=== PATIENT | male | born 1945 | race Caucasian/White ===

== ENCOUNTER 2017-01-05 19:50 | Emergency (ER) | payer OTHER ==
[~2017-01-05 19:50] MED LIST: AUGMENTIN 875875 MG PO; LIPITOR10 M1 PO; LISINOPRIL10 M1 PO; LOPRESSOR50 M1 PO; MULTAQ 400MG400 MG PO; NICODERM C21 MG/24 H TOP; OMEPRAZOLE40 MG PO; PEPCID40 MG PO; PRADAXA150 M1 PO; PREDNISONE10 MG PO; PRILOSEC20 MG PO; PROVENTIL0.09 MG/A1 INH
[2017-01-05] MEDS ORDERED: AMIODARONE HCL200 M1 PO (20:01)
[2017-01-05] MEDS ORDERED: LISINOPRIL40 M1 PO (20:16)
[2017-01-05] MEDS ORDERED: ATORVASTATIN CA40 M1 PO (20:16)
[2017-01-05] MEDS ORDERED: AMLODIPINE BESY10 M1 PO (20:17)
--- NOTE | 2017-01-05 20:23 | ED GENERAL ADULT ---
History of Present Illness General Chief Complaint: General Adult Stated Complaint: PT RIGHT HAND INDEX FINGER SWOLLOW AND ANKLE Source: patient, family Exam Limitations: no limitations Vital Signs & Intake/Output Vital Signs & Intake/Output Vital Signs Date Time Temp Pulse Resp B/P B/P Pulse O2 O2 Flow FiO2 Mean Ox Delivery Rate 01/05 2114 97.2 87 20 118/80 97 Room Air 01/05 1958 97.2 88 22 117/76 97 ED Intake and Output 01/06 0000 01/05 1200 Intake Total Output Total Balance Patient 280 lb Weight Allergies Coded Allergies: NO KNOWN ALLERGIES (03/12/14) Reconcile Medications Amiodarone HCl 200 MG TABLET 1 TAB PO DAILY AFIB (Reported) Amlodipine Besylate 10 MG TABLET 1 TAB PO DAILY BP (Reported) Atorvastatin Calcium 40 MG TABLET 1 TAB PO DAILY CHOLESTEROL (Reported) Dabigatran Etexilate Mesylate (Pradaxa 150 MG) 150 MG CAPSULE 1 CAP PO BID BLOOD THINNERS (Reported) Lisinopril 40 MG TABLET 1 TAB PO DAILY BP (Reported) Metoprolol Tartrate (Lopressor) 50 MG TABLET 1.5 TAB PO BID BP (Reported) Triage Note: PER PT RLE SWELLING AND BILAT HANDS, SWELLING BOTH RED, ITCHY. PER PT ABOUT THE SAME TIME THESE SYMPTOMS STARTED PT USED [employer] AND DID NOT WEAR PROTECTIVE EQUIPMENT, ALSO STARTED AMLODIPINE 12/21 CALLED CARDIOLOGY AND TOLD TO STOP MED. NO CP NO SOB Triage Nurses Notes Reviewed? yes Onset: Abrupt Duration: day(s): HPI: 01/05/17 71-year-old male presents to the emergency department with a rash to both hands and also to his right leg at the ankle. 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 Now he has angry erythematous rash to his palms on both hands. And also a small area on his right leg, just above the medial malleolus. He also has ongoing dependent edema to the lower extremities for years. No pain to his legs, no fever, no calf tenderness or swelling. He has a past medical history of atrial fibrillation. He's on Pradaxa, metoprolol, Lipitor, lisinopril, and was recently started on amlodipine. He is also on amiodarone. He has no chest pain or shortness of breath. On physical exam he has erythema to both palms and to an area on his right lower extremity. I will give him a cortisone ointment. He will apply twice a day. He'll follow-up with his doctor on Sunday. Past History Travel History Traveled to [place] past 21 day No Medical History Any Pertinent Medical History? see below for history Neurological: NONE EENT: NONE Cardiovascular: AFIB,HTN, CHOL Respiratory: NONE Gastrointestinal: NONE Hepatic: NONE Renal: NONE Musculoskeletal: NONE Psychiatric: NONE Endocrine: NONE History of MRSA: No History of VRE: No History of CDIFF: No Surgical History Surgical History: non-contributory Psychosocial History Who do you live with Spouse Services at Home None What is your primary language Khmer Tobacco Use: Current Daily Use Daily Tobacco Use Amount/Type: =< 4 Cigarettes daily Family History Hx Contributory? No Review of Systems Review of Systems Constitutional: Denies: fever. EENTM: Reports: no symptoms. Respiratory: Denies: short of breath. Cardiovascular: Denies: chest pain. GI: Denies: abdominal pain. Genitourinary: Reports: no symptoms. Musculoskeletal: Reports: see HPI. Skin: Reports: see HPI. Neurological/Psychological: Reports: no symptoms. Hematologic/Endocrine: Reports: no symptoms. Physical Exam Physical Exam General Appearance: no apparent distress, alert, awake, anxious Head: atraumatic, normal appearance Eyes: Bilateral: normal appearance, PERRL, EOMI. Ears, Nose, Throat: normal ENT inspection Neck: supple Respiratory: no respiratory distress Cardiovascular: irregularly irregular Peripheral Pulses: 4+ radial (R), 4+ radial (L) Back: normal range of motion Extremities: pedal edema, no calf pain or tenderness. Neurologic/Psych: no motor/sensory deficits, awake, alert, oriented x 3 Skin: rash Core Measures ACS in differential dx? No CVA/TIA Diagnosis: No Severe Sepsis Present: No Septic Shock Present: No Progress Differential Diagnoses I considered the following diagnoses in my evaluation of the patient: [ Cellulitis, contact dermatitis, adverse drug reaction, DVT] Plan of Care: Hydrocortisone ointment as directed, follow-up with his doctor on Sunday. Initial ED EKG: none Departure Departure Disposition: HOME OR SELF CARE Condition: Stable Clinical Impression Primary Impression: Contact dermatitis Referrals: RENEE BERRY MD (PCP/Family) Departure Forms: Customer Survey General Discharge Information Comments The patient was treated with a single dose of prednisone in the ED. He was given hydrocortisone ointment to apply to the rash. He will follow-up with his doctor on Sunday or return to the emergency department if worse. Critical Care Note Critical Care Note Critical Care Time: non-applicable
[2017-01-05 21:14] VITALS: BP 118/80
== END 2017-01-05 21:15 ==
LOC: ERH 19:50
DX: L25.9 Unspecified contact dermatitis, unspecified cause (principal)